=== PATIENT | female | born 1990 | race Two or more races ===

== ENCOUNTER 2018-08-01 05:41 | Emergency (ER) | payer SELFPAY ==
[~2018-08-01] VITALS: Ht 160 cm; Wt 59.0 kg
--- NOTE | 2018-08-01 05:50 | NUR ---
URINE COLLECTED AND SENT TO LAB
--- NOTE | 2018-08-01 05:50 | NUR ---
PT [id number] FROM HOME C/O ABD PAIN W/NAUSEA X 12 HOURS. DENIES VOMITING/DIARRHEA AT THIS TIME. PA AOX4. NAD NOTED. RESP EVEN AND UNLABORED. PT ON MONITOR IN BED 10. WILL CONTINUE TO MONITOR.
[2018-08-01 05:51] VITALS: BP 119/75
--- NOTE | 2018-08-01 05:52 | NUR ---
IMMANUEL ([place]) [phone]
[2018-08-01] MEDS ORDERED: CEFTRIAXONE 1 G VIAL ONE (06:10)
[2018-08-01] MEDS ORDERED: LIDOCAINE 1% INJ 50 ML MDV IJ ONE (06:10)
[2018-08-01 06:21] LABS: APPEARANCE,URINE CLOUDY (CLEAR); BILIRUBIN,URINE 1+ (NEGATIVE); BLOOD, URINE 3+ Ery/uL (NEGATIVE); COLOR,URINE ORANGE (YELLOW); KETONES,URINE NEGATIVE (NEGATIVE); LEUKOCYTE ESTERASE ,URINE 2+ (NEGATIVE); NITRITE, URINE POSITIVE (NEGATIVE); PH,URINE 7.5 (5.0-8.0); PROTEIN,URINE 3+ mg/dl (NEGATIVE); UGLUCOSE TRACE mg/dL (NEGATIVE)
[2018-08-01 06:24] LABS: BACTERIA,URINE Moderate /HPF (None Seen); RBC,URINE TOO NUMEROUS TO COUN /HPF (0-2); SQUAMOUS EPITHELIAL CELL,UR Few /HPF (None Seen); WBC,URINE TOO NUMEROUS TO COUN /HPF (0-3)
[2018-08-01] MEDS ORDERED: CEFTRIAXONE 1 G VIAL IM ONE (06:30)
--- NOTE | 2018-08-01 06:43 | NUR ---
Patient discharged to home in stable condition. Written and verbal after care instructions given. Patient verbalizes understanding of instruction. PT WAITING IN BED UNTIL FRIEND COMES TO PICK HER UP.
== END 2018-08-01 06:53 | disposition home or self-care (01) ==
LOC: ER 05:42
DX: N39.0 Urinary tract infection, site not specified (principal); Z60.2 Problems related to living alone
CPT/HCPCS: 81001; 84703; 87086; 96372; 99283; J0696; J3490; 81000-TC; 87186-TC